=== PATIENT | male | born 1980 | race Caucasian/White ===

== ENCOUNTER 2018-12-06 21:25 | Emergency (ER) | payer MEDICARE, OTHER ==
--- NOTE | 2018-12-06 21:39 | ED Physician Documentation ---
Suicidal Attempt - HISTORIAN Historian: patient - HPI Stated Complaint: suicidal ideation Chief Complaint: Suicide Attempt Onset: minutes (30) Intent: suicide Severity: mild Situational Problems: No Further Comments: yes (He states that he wants to "" and he states he will hang himself. He did use the back side of a pop can and cut his wrist .He is accompanied with staff from [facility]) - Associated Symptoms Symptoms: depressed Suicidal: suicidal thoughts Ingestion: suicide attempt Mechanism: abraded L wrist - ROS CONST: none - PAST HX Psychiatric problems: bipolar disorder, depression, prior suicide attempt, psychiatric problems DVT/PE Risk Factors: none Immunizations: UTD - Social HX Smoking History: non-smoker Marital Status: single Drug Use: none - Family HX Family HX: other (none reported ) - REVIEWED ASSESSMENTS Nursing Assessment Reviewed: Yes Vitals Reviewed: Yes <Lizbeth Trotter - Last Filed: 12/07/18 06:50> <Tayla Bingham - Last Filed: 12/07/18 17:32> - PAST HX Allergies/Adverse Reactions: Allergies Allergy/AdvReac Type Severity Reaction Status Date / Time Bleach (Sodium Hypochlorite) Allergy Verified 12/06/18 22:06 Home Medications: Ambulatory Orders Medication Instructions Recorded Acetaminophen [Mapap] 650 mg PO PRN 12/06/18 Albuterol Sulfate [Ventolin HFN] 2.5 mg INH PRN 12/06/18 Aripiprazole 10 mg PO DAILY 12/06/18 Epinephrine [Epipen] 0.3 mg SQ PRN 12/06/18 Fluticasone Propionate [Flovent 13 gm INH BID 12/06/18 Hfa] Lamotrigine [Lamictal] 150 mg PO BID 12/06/18 [place] Carbonate [[place] 450 mg PO BID 12/06/18 Carbonate ER] Magnesium Hydroxide [Milk of 30 ml PO PRN 12/06/18 Magnesia] Olanzapine [Zyprexa] 10 tab PO HS 12/06/18 Quetiapine Fumarate [Seroquel] 400 mg PO BID 12/06/18 - VITAL SIGNS Vital Signs: Vital Signs Temp Pulse Resp BP Pulse Ox 98.1 F 68 19 129/80 99 12/07/18 17:16 12/07/18 17:16 12/07/18 17:16 12/07/18 14:05 12/07/18 14:05 Progress <Lizbeth Trotter - Last Filed: 12/07/18 06:50> <Tayla Bingham - Last Filed: 12/07/18 17:32> - Progress Progress: 0045: no rooms available for psychiatric care will hold pt until am DG 0650: care turned over to [facility] (Lizbeth Trotter) 10:00 Patient has been sleeping most of the morning- woke up and breakfast was given- caregivers have been at the bedside Didi with [employer] has been working on trying to find placement for patient. Currently, we are just waiting (patient and caregiver aware).. 14:15 [facility] in [place], [place] has accepted patient after POA calls and gives consent- [employer] completing task. 17:00 [facility] has completed paperwork per [place] and they are ready for patient. Dr. Stephenson has accepted. (Tayla Bingham) - Lab Results Lab Results: Lab Results 12/06/18 12/06/18 12/06/18 22:00 22:00 22:00 WBC 8.70 K/ul K/ul (4.00-12.00) RBC 5.02 M/ul M/ul (3.90-5.20) Hgb 14.8 g/dL g/dL (12.0-18.0) Hct 44.7 % % (37.0-53.0) MCV 89.0 fl fl (80.0-100.0) MCH 29.5 pg pg (28.0-34.0) MCHC 33.1 g/dL g/dL (30.0-36.0) RDW 14.8 % H % (11.3-14.3) Plt Count 359 K/mm3 K/mm3 (130-400) Neut % (Auto) 67.4 % % (39.0-79.0) Lymph % (Auto) 24.4 % % (16.0-50.0) [place] % (Auto) 6.7 % % (0.0-11.0) Eos % (Auto) 0.7 % % (0.0-6.8) Baso % (Auto) 0.8 (0.0-1.5) Neut # (Auto) 5.9 # k/uL # k/uL (1.4-7.7) Lymph # (Auto) 2.1 # k/uL # k/uL (0.6-4.0) [place] # (Auto) 0.6 # k/uL # k/uL (0.0-0.9) Eos # (Auto) 0.1 # k/uL # k/uL (0.0-0.6) Baso # (Auto) 0.1 # k/uL # k/uL (0.0-0.5) Sodium 139 mmol/L mmol/L (136-145) Potassium 3.5 mmol/L mmol/L (3.5-5.1) Chloride 101 mmol/L mmol/L (98-107) Carbon Dioxide 28 mmol/L mmol/L (22-30) BUN 3 mg/dL L mg/dL (9-20) Creatinine 1.04 mg/dL mg/dL (0.66-1.25) Estimated Creat Clear 110 Est GFR ( Amer) > 60 (60 - ) Est GFR (Non-Af Amer) > 60 (60 - ) Glucose 104 mg/dL mg/dL (74-106) Calcium 9.0 mg/dL mg/dL (8.4-10.2) Total Bilirubin 0.3 mg/dL mg/dL (0.2-1.3) AST 29 U/L U/L (15-46) ALT 25 U/L U/L (13-69) Alkaline Phosphatase 78 U/L U/L (38-126) Total Protein 8.0 g/dL g/dL (6.3-8.2) Albumin 4.5 g/dL g/dL (3.5-5.0) Urine Color Urine Appearance Urine pH Ur Specific [place] Urine Protein Urine Ketones Urine Occult Blood Urine Nitrite Urine Bilirubin Urine Urobilinogen Ur Leukocyte Esterase Urine Glucose Opiates Screen Negative ng/mL ng/mL (<300) Oxycodone Screen Negative ng/mL ng/mL (<100) Methadone Screen Negative ng/mL ng/mL (<200) Acetaminophen < 10.0 ug/mL L ug/mL (10-30) Ur Barbiturates Screen Negative ng.mL ng.mL (<200) Tricyclic Antidepress Non negative ng/mL H ng/mL (<300) Phencyclidine Screen Negative ng/mL ng/mL (< 25) Amphetamines Screen Negative ng/mL ng/mL (<500) U Methamphetamines Scrn Negative ng/mL ng/mL (<500) MDMA Negative ng/mL ng/mL (<500) Benzodiazepines Screen Negative ng/mL ng/mL (<150) Urine Cocaine Screen Negative ng/mL ng/mL (<150) U Cannabinoids Screen Negative ng/mL ng/mL (< 50) Ethyl Alcohol < 10.0 mg/dL mg/dL (0.0-10.0) 12/06/18 20:55 WBC RBC Hgb Hct MCV MCH MCHC RDW Plt Count Neut % (Auto) Lymph % (Auto) [place] % (Auto) Eos % (Auto) Baso % (Auto) Neut # (Auto) Lymph # (Auto) [place] # (Auto) Eos # (Auto) Baso # (Auto) Sodium Potassium Chloride Carbon Dioxide BUN Creatinine Estimated Creat Clear Est GFR ( Amer) Est GFR (Non-Af Amer) Glucose Calcium Total Bilirubin AST ALT Alkaline Phosphatase Total Protein Albumin Urine Color Yellow (YELLOW) Urine Appearance Clear (CLEAR) Urine pH 6.5 (5.0 - 8.0) Ur Specific [place] 1.010 (1.010-1.030) Urine Protein Negative mg/dL mg/dL (NEGATIVE) Urine Ketones Negative mg/dL mg/dL (NEGATIVE) Urine Occult Blood Negative (NEGATIVE) Urine Nitrite Negative (NEGATIVE) Urine Bilirubin Negative (NEGATIVE) Urine Urobilinogen 0.2 Eu Eu (0.2-1.0) Ur Leukocyte Esterase Negative (NEGATIVE) Urine Glucose Negative mg/dL mg/dL (NEGATIVE) Opiates Screen Oxycodone Screen Methadone Screen Acetaminophen Ur Barbiturates Screen Tricyclic Antidepress Phencyclidine Screen Amphetamines Screen U Methamphetamines Scrn MDMA Benzodiazepines Screen Urine Cocaine Screen U Cannabinoids Screen Ethyl Alcohol - Orders Orders: ED Orders Category Date Time Status IV Started NOW Care 12/06/18 21:46 Active ACETAMINOPHEN LEVEL Routine Lab 12/06/18 22:00 Completed ALCOHOL MEDICAL USE ONLY Routine Lab 12/06/18 22:00 Completed CBC/PLATELET/DIFF Routine Lab 12/06/18 22:00 Completed CMP Routine Lab 12/06/18 22:00 Completed DRUG SCREEN URINE MEDICAL ONLY Routine Lab 12/06/18 22:00 Completed SALICYLATE LEVEL Routine Lab 12/06/18 22:00 Received THYROID PANEL (TSH, FT3, FT4) Stat Lab 12/06/18 22:00 Received UA MACRO DIP ONLY Routine Lab 12/06/18 20:55 Completed EKG WITH COMPARISON Stat Ther 12/06/18 Completed Suicide Physical Exam - Physical Exam General Appearance: no acute distress, alert ENT: nml ENT inspection Eyes: PERRL Mental Status: mood/affect nml Suicide Attempts: admit Orientation: nml x3 Cranial Nerves: CN's intact as tested Sensory, Motor: nml motor response Neck/Back: normal inspection Respiratory: no resp distress, chest non-tender, breath sounds normal CVS: reg rate & rhythm, heart sounds normal Abdomen: non-tender Skin: warm/dry, other (abrasions noted on posterior wrist distal radioular joint area - minor abrasions . ) Extremities: non-tender, normal range of motion, no edema <Lizbeth Trotter - Last Filed: 12/07/18 06:50> Discharge <Lizbeth Trotter - Last Filed: 12/07/18 06:50> Decision to Admit: NO Decision Time: 17:04 <Tayla Bingham - Last Filed: 12/07/18 17:32> Clincal Impression: Suicidal ideation, Suicide attempt Referrals: Timo Washington MD [Primary Care Provider] - 2 Days Additional Instructions: Transferred to [facility] to Dr. Stephenson Condition: Stable Disposition: 65 XFER TO PSYCH HOSP/UNIT
[2018-12-07 06:15] LABS: BASOPHILS % 0.8 (0.0-1.5); EOSINOPHILS % 0.7 % (0.0-6.8); MEAN CORPUSCULAR HEMOGLOBIN 29.5 pg (28.0-34.0); MONOCYTES % 6.7 % (0.0-11.0); NEUTROPHILS # 5.9 # k/uL (1.4-7.7)
[2018-12-07 06:16] LABS: eGFR (Non-African) > 60
[2018-12-07 09:26] LABS: CANNABINOIDS NEGATIVE ng/mL (< 50)
[2018-12-07 09:27] LABS: METHYLENEDIOXYMETHAMPHETAMINE NEGATIVE ng/mL (<500)
[2018-12-07 09:28] LABS: APPEARANCE,URINE CLEAR (CLEAR); COLOR,URINE YELLOW (YELLOW)
[2018-12-07 09:29] LABS: OCCULT BLOOD,URINE NEGATIVE (NEGATIVE); PH URINE 6.5 (5.0 - 8.0); UROBILINOGEN URINE 0.2 Eu (0.2-1.0)
[2018-12-07 14:06] VITALS: BP 129/80
== END 2018-12-07 17:21 ==
LOC: ED 21:25
DX: S60.812A Abrasion of left wrist, initial encounter (principal); R45.851 Suicidal ideations; X78.8XXA Intentional self-harm by other sharp object, initial encounter; Y93.9 Activity, unspecified; Y92.199 Unspecified place in other specified residential institution as the place of occurrence of the external cause; Z79.899 Other long term (current) drug therapy
CPT/HCPCS: 36415; 80053; 81002; 84439; 84443; 84481; 85025; 93005; 99285; G0480; G0481; 80320; 80377